=== PATIENT | male | born 1990 | race Caucasian/White ===

== ENCOUNTER 2018-08-09 20:17 | Emergency (ER) | payer SELFPAY ==
[~2018-08-09] VITALS: Ht 177.8 cm; Wt 92.3 kg
[2018-08-09 20:25] VITALS: BP 147/89
--- NOTE | 2018-08-09 21:05 | NUR ---
PT HR NOW 93. PT IN BED. X RAY COMPLETE. AWAITING RESULTS
--- NOTE | 2018-08-09 21:54 | NUR ---
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 PA ADVISED PT THAT THE SPLINT NEEDS TO REMAIN UNTIL PT IS SEEN BY ORTHO. AT THIS TIME PT AGREES WITH POC AND AGREES TO LEAVE SPLINT ON. PT EDUCATED ON THE IMPORTANCE OF THE SPLINT AND THE DAMAGE THAT CAN BE DONE BY REMOVING BY PA
== END 2018-08-09 21:58 | disposition home or self-care (01) ==
LOC: ED 21:52
DX: S62.366A Nondisplaced fracture of neck of fifth metacarpal bone, right hand, initial encounter for closed fracture (principal); Z87.891 Personal history of nicotine dependence; X58.XXXA Exposure to other specified factors, initial encounter; Y93.89 Activity, other specified; Y92.009 Unspecified place in unspecified non-institutional (private) residence as the place of occurrence of the external cause; Y99.8 Other external cause status
CPT/HCPCS: 29125; 99283